=== PATIENT | male | born 2000 | race Caucasian/White ===

== ENCOUNTER 2020-07-16 10:25 | Emergency (ER) | payer BC, OTHER ==
[2020-07-16] MEDS ORDERED: Ketorolac 60 MG/2 ML SDV IM ONE (10:46)
--- NOTE | 2020-07-16 10:52 | EDM.PDOC ---
ED HPI GENERAL MEDICAL PROBLEM - General Chief Complaint: Upper Extremity Injury/Pain Stated Complaint: L HAND INJURY Time Seen by Provider: 07/16/20 10:45 Source of Information: Reports: Patient History Limitations: Reports: No Limitations - History of Present Illness INITIAL COMMENTS - FREE TEXT/NARRATIVE: Was at work, slipped and was falling and caught himself with his left hand on the wall. Left hand was trying to break his fall His left thumb got hyperextended and deformed. 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 ED EXAM, GENERAL - Physical Exam Exam: See Below Exam Limited By: No Limitations General Appearance: Alert, WD/WN, No Apparent Distress, Other (in some discomfort from the injury) Eye Exam: Bilateral Eye: EOMI Nose: Normal Inspection Throat/Mouth: Normal Oropharynx Head: Atraumatic, Normocephalic Neck: Supple, Non-Tender Respiratory/Chest: No Respiratory Distress, Lungs Clear Back Exam: Normal Inspection, Full Range of Motion Extremities: Joint Swelling (left thumb), Limited Range of Motion (left thumb) Neurological: Alert, Oriented, CN II-XII Intact Psychiatric: Normal Affect, Normal Mood Course - Vital Signs Last Recorded V/S: Last Vital Signs Temp 36.8 C 07/16/20 10:45 Pulse 72 07/16/20 12:30 Resp 16 07/16/20 12:30 BP 118/72 07/16/20 12:30 Pulse Ox 100 07/16/20 12:30 - Orders/Labs/Meds Labs: Laboratory Tests 07/16/20 Range/Units 11:05 Urine Opiates Screen Negative (NEGATIVE) Ur Oxycodone Screen Negative (NEGATIVE) Ur Propoxyphene Screen Negative (NEGATIVE) Ur Barbituates Screen Negative (NEGATIVE) Ur Tricyclics Screen Negative (NEGATIVE) Ur Phencyclidine Scrn Negative (NEGATIVE) Ur Amphetamine Screen Negative (NEGATIVE) Urine MDMA Screen Negative (NEGATIVE) U Benzodiazepines Scrn Negative (NEGATIVE) U Cocaine Metab Screen Negative (NEGATIVE) U Marijuana (THC) Screen Negative (NEGATIVE) Meds: Medications Discontinued Medications Generic Name Dose Route Start Last Admin Trade Name Freq PRN Reason Stop Dose Admin Ketorolac Tromethamine 60 mg 07/16/20 10:46 07/16/20 10:51 Toradol IM 07/16/20 10:47 60 mg ONETIME ONE Administration - Re-Assessments/Exams Free Text/Narrative Re-Assessment/Exam: 07/16/20 10:53 XRay ordered and pt given Toradol Departure - Departure Time of Disposition: 12:45 Disposition: Home, Self-Care 01 Condition: Good Clinical Impression: Contusion of left thumb without damage to nail, initial encounter, Left thumb sprain - Discharge Information *PRESCRIPTION DRUG MONITORING PROGRAM REVIEWED*: Not Applicable *COPY OF PRESCRIPTION DRUG MONITORING REPORT IN PATIENT ALEXANDRO: Not Applicable Prescriptions: Miscellaneous Medical Supply [DME for Prescription] 1 each .XX ASDIRECTED #1 each Diclofenac Sodium [Voltaren 1% Gel] 1 applic TOP BID #100 g Instructions: Hand Contusion, [id number], Finger Sprain, Adult, [id number] Referrals: PCP,None [Primary Care Provider] - Forms: ED Return to Work/School Form, ED Department Discharge Additional Instructions: 1) KEEP HAND ELEVATED 2) COLD COMPRESS TO AFFECTED AREA 2 TIMES DAILY FOR NEXT 2 DAYS 3) OBTAIN WRIST SPLINT WITH THUMB SPICA : TO USE FOR WORK 4) MAKE APPOINTMENT TO BE SEE IN CLINIC ON 07/20/2020 FOR FOLLOW UP Sepsis Event Note (ED) - Evaluation Sepsis Screening Result: No Definite Risk - Focused Exam Vital Signs: Vital Signs Temp Pulse Resp BP Pulse Ox 07/16/20 12:30 72 16 118/72 100 07/16/20 10:45 36.8 C 74 16 119/70 98
--- NOTE | 2020-07-16 11:16 | CR ---
INDICATION: Pain after a fall, left thumb area. LEFT HAND: Three views of the left hand were obtained 07/16/20 - no comparison. A fracture, dislocation or other significant bone or joint abnormality was not identified. If symptoms persist - if occult fracture site is suspected clinically, reexamination in 10-14 days may be helpful. [facility]
== END 2020-07-16 12:45 | disposition home or self-care (01) ==
LOC: FB.ED 10:25
DX: S63.602A Unspecified sprain of left thumb, initial encounter (principal); X50.9XXA Other and unspecified overexertion or strenuous movements or postures, initial encounter
CPT/HCPCS: 73130-LT; 80305-QW; 96372; 99283; 99283-25; J1885

== ENCOUNTER 2021-06-17 11:53 | Emergency (ER) | payer OTHER, BC ==
[2021-06-17] MEDS ORDERED: Cyclobenzaprine 10 MG Tab PO ONE (12:14)
[2021-06-17] MEDS ORDERED: Ketorolac 30 MG/ML SDV IVPUSH ONE (12:14)
[2021-06-17] MEDS ORDERED: Sodium Chloride 0.9% 10 ML Syringe FLUSH PRN (12:14)
[2021-06-17] MEDS ORDERED: Sodium Chloride 0.9% 1,000 ML IV SCH (12:15)
--- NOTE | 2021-06-17 12:21 | EDM.PDOC ---
ED HPI GENERAL MEDICAL PROBLEM - General Stated Complaint: CHEST PAIN Time Seen by Provider: 06/17/21 12:00 Source of Information: Reports: Patient History Limitations: Reports: No Limitations - History of Present Illness INITIAL COMMENTS - FREE TEXT/NARRATIVE: Patient presented to the ED because of chest pain, tingling of the hands and upper back pain. He has been running back and forth at [employer] and lifting heavy things. there is no dyspnea, nausea or vomiting. There is no fever, chills, cough or cold. - Related Data Allergies Allergy/AdvReac Type Severity Reaction Status Date / Time No Known Allergies Allergy Verified 07/16/20 10:49 Home Meds: Home Meds Diclofenac Sodium [Voltaren 1% Gel] 1 applic TOP BID #100 g 07/16/20 [Rx] Miscellaneous Medical Supply [DME for Prescription] 1 each .XX ASDIRECTED #1 each 07/16/20 [Rx] Past Medical History Neurological History: Reports: Seizure Social & Family History - Family History Family Medical History: No Pertinent Family History - Caffeine Use Caffeine Use: Reports: None ED ROS GENERAL - Review of Systems Review Of Systems: See Below Constitutional: Reports: No Symptoms HEENT: Reports: No Symptoms Respiratory: Reports: No Symptoms Cardiovascular: Reports: Chest Pain Endocrine: Reports: No Symptoms GI/Abdominal: Reports: No Symptoms : Reports: No Symptoms Musculoskeletal: Reports: Back Pain Skin: Reports: No Symptoms Neurological: Reports: No Symptoms Psychiatric: Reports: No Symptoms ED EXAM, GENERAL - Physical Exam Exam: See Below Exam Limited By: No Limitations General Appearance: Alert, No Apparent Distress Eye Exam: Bilateral Eye: PERRL Ears: Normal External Exam, Normal Canal Nose: Normal Inspection, Normal Mucosa, No Blood Throat/Mouth: Normal Inspection, Normal Lips, Normal Teeth Head: Atraumatic, Normocephalic Neck: Normal Inspection, Supple, Non-Tender, Full Range of Motion Respiratory/Chest: No Respiratory Distress, Lungs Clear, Other (tenderness left chest wall) Cardiovascular: Normal Peripheral Pulses, Regular Rate, Rhythm, No Edema, No JVD, No Murmur GI/Abdominal: Normal Bowel Sounds, Soft, Non-Tender, No Organomegaly Back Exam: Normal Inspection, Full Range of Motion Extremities: Normal Inspection, Normal Range of Motion, Non-Tender Neurological: Alert, Oriented, CN II-XII Intact, Normal Cognition, Normal Gait, Normal Reflexes, No Motor/Sensory Deficits Psychiatric: Normal Affect, Normal Mood Skin Exam: Warm #1 Interpretation EKG Date: 06/17/21 Time: 11:58 Rhythm: NSR Rate (Beats/Min): 60 [place]: Normal P-Wave: Present QRS: Normal ST-T: Normal QT: Normal PA/PQ Interval: 120 Comparison: NA - No Prior EKG EKG Interpretation Comments: NSR Course - Vital Signs Text/Narrative:: Lab/EKG result was reviewed and discussed with patient NS 1 L bolus Toradol 30 mg IV x1 Flexeril 10 mg PO x1 - Orders/Labs/Meds Orders: Active Orders 24 hr Category Date Time Status EKG Documentation Completion [RC] ASDIRECTED Care 06/17/21 12:15 Active TROPONIN I [CHEM] Stat Lab 06/17/21 12:16 Ordered Sodium Chloride 0.9% [Normal Saline] 1,000 ml Med 06/17/21 12:15 Active IV ASDIRECTED Sodium Chloride 0.9% [Saline Flush] Med 06/17/21 12:14 Active 10 ml FLUSH ASDIRECTED PRN Saline Lock Insert [OM.PC] Routine Oth 06/17/21 12:14 Ordered EKG 12 Lead [EK] Routine Ther 06/17/21 12:14 Ordered Medication Orders Sodium Chloride (Normal Saline) 1,000 mls @ 999 mls/hr IV ASDIRECTED ROME Last Admin: 06/17/21 12:22 Dose: 999 mls/hr Documented by: DIFFCAL Sodium Chloride (Sodium Chloride 0.9% 10 Ml Syringe) 10 ml FLUSH ASDIRECTED PRN PRN Reason: Keep Vein Open Labs: Laboratory Tests 06/17/21 06/17/21 Range/Units 12:14 12:25 WBC 10.3 H (3.2-10.1) x10-3/uL RBC 4.55 (3.90-5.90) x10(6)uL Hgb 14.5 (12.9-17.7) g/dL Hct 42.5 (38.3-50.1) % MCV 93.5 (80.8-98.7) fL MCH 32.0 (27.0-33.3) pg MCHC 34.2 (28.7-35.3) g/dL RDW 13.7 (12.4-15.0) % Plt Count 309 (117-477) x10(3)uL MPV 7.2 (6.7-11.0) fL Neut % (Auto) 77.3 H (40.3-71.8) % Lymph % (Auto) 16.8 (15.8-45.3) % [place] % (Auto) 4.9 L (5.5-15.2) % Eos % (Auto) 0.7 (0.1-6.8) % Baso % (Auto) 0.3 (0.3-3.8) % Neut # (Auto) 8.0 H (1.7-6.9) x10-3/uL Lymph # (Auto) 1.7 (0.5-4.5) x10-3/uL [place] # (Auto) 0.5 (0.0-1.2) x10-3/uL Eos # (Auto) 0.1 (0.0-0.6) x10-3/uL Baso # (Auto) 0.0 (0.0-0.3) x10-3/uL Sodium 140 (135-145) mmol/L Potassium 4.1 (3.5-5.3) mmol/L Chloride 105 (100-110) mmol/L Carbon Dioxide 28 (21-32) mmol/L BUN 18 (7-18) mg/dL Creatinine 1.0 (0.70-1.30) mg/dL Est Cr Clr Drug Dosing TNP Estimated GFR (MDRD) > 60 (>60) BUN/Creatinine Ratio 18.0 (9-20) Glucose 94 (80-116) mg/dL Calcium 8.9 (8.6-10.2) mg/dL Meds: Medications Generic Name Dose Route Start Last Admin Trade Name Freq PRN Reason Stop Dose Admin Sodium Chloride 1,000 mls @ 999 mls/hr 06/17/21 12:15 06/17/21 12:22 Normal Saline IV 999 mls/hr ASDIRECTED ROME Administration Sodium Chloride 10 ml 06/17/21 12:14 Sodium Chloride 0.9% 10 Ml Syringe FLUSH ASDIRECTED PRN Keep Vein Open Discontinued Medications Generic Name Dose Route Start Last Admin Trade Name Freq PRN Reason Stop Dose Admin Cyclobenzaprine HCl 10 mg 06/17/21 12:14 12/30/21 12:22 Cyclobenzaprine 10 Mg Tab PO 06/17/21 12:15 10 mg ONETIME ONE Administration Ketorolac Tromethamine 30 mg 06/17/21 12:14 06/17/21 12:22 Ketorolac 30 Mg/Ml Sdv IVPUSH 06/17/21 12:15 30 mg ONETIME ONE Administration Departure - Departure Time of Disposition: 13:30 Disposition: Home, Self-Care 01 Condition: Good Clinical Impression: Chest wall pain, Muscle strain - Discharge Information Instructions: Muscle Strain, [id number], Nonspecific Chest Pain, Adult, [id number] Referrals: Francesca Montelongo NP [Primary Care Provider] - Additional Instructions: Please read discharge instructions on muscle strain Take ibuprofen 800 mg with tylenol 1000 mg every 8 hours as needed for pain Follow up as needed - My Orders Last 24 Hours: My Active Orders 06/17/21 12:14 Sodium Chloride 0.9% [Saline Flush] 10 ml FLUSH ASDIRECTED PRN Saline Lock Insert [OM.PC] Routine EKG 12 Lead [EK] Routine 06/17/21 12:15 EKG Documentation Completion [RC] ASDIRECTED Sodium Chloride 0.9% [Normal Saline] 1,000 ml IV ASDIRECTED 06/17/21 12:16 TROPONIN I [CHEM] Stat - Assessment/Plan Last 24 Hours: My Active Orders 06/17/21 12:14 Sodium Chloride 0.9% [Saline Flush] 10 ml FLUSH ASDIRECTED PRN Saline Lock Insert [OM.PC] Routine EKG 12 Lead [EK] Routine 06/17/21 12:15 EKG Documentation Completion [RC] ASDIRECTED Sodium Chloride 0.9% [Normal Saline] 1,000 ml IV ASDIRECTED 06/17/21 12:16 TROPONIN I [CHEM] Stat
== END 2021-06-17 13:45 | disposition home or self-care (01) ==
LOC: FB.ED 11:53
DX: S29.011A Strain of muscle and tendon of front wall of thorax, initial encounter (principal); X50.0XXA Overexertion from strenuous movement or load, initial encounter; Y93.02 Activity, running
CPT/HCPCS: 36415; 80048; 84484; 85025; 93005; 96374; 99000; 99285; A9270; J1885; J7030; 93010; 99284

== ENCOUNTER 2022-02-15 18:14 | Emergency (ER) | payer BC, OTHER ==
[2022-02-15] MEDS ORDERED: Sodium Chloride 0.9% 10 ML Syringe FLUSH PRN (18:31)
[2022-02-15] MEDS: Sodium Chloride 0.9% 1,000 ML IV SCH ×2 (18:36→19:50)
[2022-02-15] MEDS: Ondansetron 4 MG/2 ML SDV IVPUSH ONE (18:36)
[2022-02-15 18:55] LABS: ESTIMATED GFR 97 mL/min (>60)
[2022-02-15] MEDS: Ketorolac 30 MG/ML SDV IVPUSH ONE (19:00)
[2022-02-15] MEDS: Morphine 2 MG/ML SYRINGE IVPUSH ONE (19:03)
[2022-02-15] MEDS: Iopamidol 755 Mg/ML 75 ML Bottle IV ONE (20:20)
[2022-02-15] MEDS ORDERED: Ondansetron 4 MG Tab.DIS PO ONE (22:04)
== END 2022-02-15 22:18 | disposition home or self-care (01) ==
LOC: FB.ED 18:14
DX: A08.4 Viral intestinal infection, unspecified (principal); E86.0 Dehydration; E87.6 Hypokalemia; Z20.822 Contact with and (suspected) exposure to COVID-19
CPT/HCPCS: 36415; 74177; 80053; 81001; 82150; 83690; 85025; 87635; 96361; 96374; 96375; 99284; J1885; J2270; J2405; J7030; Q0162; Q9967; U0002

== ENCOUNTER 2022-06-19 03:28 | Emergency (ER) | payer BC, OTHER ==
[2022-06-19] MEDS ORDERED: Morphine 4 MG/ML VIAL IVPUSH ONE (03:35)
[2022-06-19 04:11] LABS: ESTIMATED GFR 122 mL/min (>60)
[2022-06-19] MEDS ORDERED: Potassium Chloride 20 MEQ Tab.ER PO STA (04:49)
[2022-06-19] MEDS ORDERED: Ketorolac 30 MG/ML SDV IVPUSH ONE (04:55)
== END 2022-06-19 05:19 | disposition home or self-care (01) ==
LOC: FB.ED 03:28
DX: S00.83XA Contusion of other part of head, initial encounter (principal); S00.03XA Contusion of scalp, initial encounter; E87.6 Hypokalemia; F10.129 Alcohol abuse with intoxication, unspecified; Y04.8XXA Assault by other bodily force, initial encounter
CPT/HCPCS: 36415; 70450; 70486; 80053; 80307; 85025; 85610; 85730; 96374; 96375; 99285; A9270; J1885; J2270